=== PATIENT | male | born 1970 | race Asian ===

== ENCOUNTER 2016-06-12 17:35 | Inpatient (IN) | payer MEDICAID ==
[~2016-06-12] VITALS: Ht 165.1 cm; Wt 56.8 kg
[2016-06-12] MEDS ORDERED: SODIUM CHLORIDE 0.9% 1,000 ML IV ONE (17:40)
[2016-06-12] MEDS ORDERED: LORazepam 2 MG/ML, 1ML ONE ×2 (17:49→19:34)
[2016-06-12] MEDS ORDERED: PLEASE ENTER HEIGHT AND WEIGHT MC SCH (18:00)
[2016-06-12] MEDS ORDERED: PLEASE ENTER ALLERGIES MC SCH ×2 (18:00)
[2016-06-12] MEDS ORDERED: SODIUM CHLORIDE FLUSH 10ML SYR IVF ONE (18:00)
[2016-06-12] MEDS ORDERED: LORazepam 2 MG/ML, 1ML IVPush ONE (18:00)
[2016-06-12 18:11] LABS: ASPARTATE AMINO TRANSFERASE 225 U/L (15-37); BLOOD UREA NITROGEN 8 mg/dL (7-18)
[2016-06-12 18:15] LABS: ACETAMINOPHEN < 2 mcg/mL (10-30)
[2016-06-12] MEDS ORDERED: POTASSIUM CHLORIDE 40 MEQ in SODIUM CHLORIDE 0.9% 1,000 ML IV ONE (18:25)
[2016-06-12 18:50] LABS: DAU SCREEN DISCLAIMER
[2016-06-12] MEDS ORDERED: THIAMINE 100 MG in SODIUM CHLORIDE 0.9% 50 ML IVPB ONE (19:30)
[2016-06-12] MEDS: LORazepam 2 MG/ML, 1ML IVPush PRN ×2 (19:35→20:29)
[2016-06-12] MEDS ORDERED: ONDANSETRON 2MG/ML, 2ML IV PRN (20:00)
[2016-06-12] MEDS ORDERED: LORazepam 2 MG/ML, 1ML IV PRN ×4 (20:00)
[2016-06-12] MEDS ORDERED: DOCUSATE 100 MG CAPSULE PO PRN (20:00)
[2016-06-12] MEDS ORDERED: ALUMINUM/MAG/SIMETHICONE 30 ML UDC PO PRN (20:00)
[2016-06-12] MEDS ORDERED: BISACODYL 10 MG SUPP PR PRN (20:00)
[2016-06-12] MEDS ORDERED: LORazepam 0.5MG TABLET PO PRN (20:00)
[2016-06-12] MEDS ORDERED: LORazepam 1MG TABLET PO PRN ×2 (20:00)
[2016-06-12 21:00] VITALS: BP 184/110
[2016-06-12 21:08] VITALS: BP 184/110
[2016-06-12] MEDS: ENOXAPARIN 40 MG/0.4 ML SQ SCH (21:47)
[2016-06-12] MEDS: POTASSIUM CHLORIDE IV SCH (22:01)
[2016-06-12] MEDS: MAGNESIUM SULFATE IV SCH (22:01)
[2016-06-12] MEDS: FOLIC ACID IV SCH (22:01)
[2016-06-12] MEDS: [UNRECOGNIZED DRUG - OTHER] IV SCH (22:01)
[2016-06-12] MEDS: MVI ADULT IV SCH (22:01)
[2016-06-12 22:50] VITALS: BP 160/99
[2016-06-12] MEDS: BACLOFEN 10 MG TABLET PO SCH (23:23)
[2016-06-13 01:15] VITALS: BP 146/87
[2016-06-13] MEDS: NS + 20MEQ KCL 1,000 ML IV SCH ×3 (04:10→17:40)
[2016-06-13 05:21] LABS: BLOOD UREA NITROGEN 6 mg/dL (7-18)
[2016-06-13 05:49] LABS: ASPARTATE AMINO TRANSFERASE 128 U/L (15-37)
[2016-06-13 07:40] VITALS: BP 155/91
[2016-06-13] MEDS ORDERED: POTASSIUM CHLORIDE 40 MEQ in SODIUM CHLORIDE 0.9% 500 ML IV ONE (08:30)
[2016-06-13] MEDS: LORazepam 1MG TABLET PO PRN ×2 (09:00→12:31)
[2016-06-13] MEDS: BACLOFEN 10 MG TABLET PO SCH ×2 (09:00→20:48)
[2016-06-13 12:35] VITALS: BP 155/93
[2016-06-13 19:10] VITALS: BP 156/93
[2016-06-13] MEDS: ENOXAPARIN 40 MG/0.4 ML SQ SCH (20:47)
[2016-06-13] MEDS: LORazepam 2 MG/ML, 1ML IV PRN (20:47)
[2016-06-13] MEDS: MVI ADULT IV SCH (20:48)
[2016-06-13] MEDS: POTASSIUM CHLORIDE IV SCH (20:48)
[2016-06-13] MEDS: [UNRECOGNIZED DRUG - OTHER] IV SCH (20:48)
[2016-06-13] MEDS: FOLIC ACID IV SCH (20:48)
[2016-06-13] MEDS: MAGNESIUM SULFATE IV SCH (20:48)
[2016-06-14 00:38] VITALS: BP 154/105
[2016-06-14] MEDS: NS + 20MEQ KCL 1,000 ML IV SCH (02:41)
[2016-06-14 05:44] LABS: ASPARTATE AMINO TRANSFERASE 112 U/L (15-37); BLOOD UREA NITROGEN 6 mg/dL (7-18)
[2016-06-14 07:15] VITALS: BP 174/96
[2016-06-14] MEDS: BACLOFEN 10 MG TABLET PO SCH ×2 (08:48→21:27)
[2016-06-14] MEDS: LORazepam 1MG TABLET PO PRN ×3 (12:50→21:26)
[2016-06-14 13:15] VITALS: BP 159/99
[2016-06-14] MEDS ORDERED: POTASSIUM CHLORIDE 40 MEQ in SODIUM CHLORIDE 0.9% 500 ML IV ONE (14:00)
[2016-06-14 19:14] VITALS: BP 162/102
[2016-06-14] MEDS: ENOXAPARIN 40 MG/0.4 ML SQ SCH (20:00)
[2016-06-15 01:15] VITALS: BP 185/125
[2016-06-15] MEDS: LORazepam 2 MG/ML, 1ML IV PRN (02:31)
[2016-06-15] MEDS: MAGNESIUM SULFATE IV SCH (03:00)
[2016-06-15] MEDS: POTASSIUM CHLORIDE IV SCH (03:00)
[2016-06-15] MEDS: FOLIC ACID IV SCH (03:00)
[2016-06-15] MEDS: [UNRECOGNIZED DRUG - OTHER] IV SCH (03:00)
[2016-06-15] MEDS: MVI ADULT IV SCH (03:00)
[2016-06-15] MEDS: BACLOFEN 10 MG TABLET PO SCH (08:38)
[2016-06-15 12:31] VITALS: BP 173/110
[2016-06-15] MEDS ORDERED: MULT-412 PO (14:06)
[2016-06-15] MEDS ORDERED: FOLI-17 PO (14:06)
[2016-06-15] MEDS ORDERED: THIA100T6 PO (14:06)
== END 2016-06-15 14:58 | disposition home or self-care (01) | DRG 896 ==
LOC: SUATTDRO 19:45 → ED 20:27 → EDBD 20:46 → EDIP 20:46 → 4EST 21:00 → 4WST 22:15 → 4EST 06-14 22:31
PROC: 0T9B70Z Drainage of Bladder with Drainage Device, Via Natural or Artificial Opening (ICD-10-PCS; principal; 2016-06-12)
DX: F10.239 Alcohol dependence with withdrawal, unspecified (principal); G92 Toxic encephalopathy; E87.1 Hypo-osmolality and hyponatremia; K70.10 Alcoholic hepatitis without ascites; D53.9 Nutritional anemia, unspecified; E87.6 Hypokalemia; F17.210 Nicotine dependence, cigarettes, uncomplicated; Z71.41 Alcohol abuse counseling and surveillance of alcoholic
CPT/HCPCS: 36415; 70450; 71010; 80053; 80307; 80329; 81001; 82140; 82607; 82746; 83735; 84100; 84443; 85025; 85610; 87086; 93005; 96361; 96365; 96375; 96376; J1650; J3411; J3475; J3480; G0480; J2060; J7030; J7040